=== PATIENT | male | born 1975 | race Caucasian/White ===

== ENCOUNTER 2022-10-05 08:37 | Day surgery (SDC) | payer OTHER, BC, SELFPAY ==
[2022-10-05] VITALS (9 sets, daily range): BP systolic 111–154; BP diastolic 67–93; PULSE 64–109; RESP 16–18; TEMP 36.5–36.9; O2SAT 95–99; BMI 23.3
[2022-10-05] MEDS: LACTATED RINGERS 1000 ML 1,000 ML 100 ML IV (09:00)
[2022-10-05] MEDS: SODIUM CHLORIDE 0.9 % (FLUSH) 10 ML SYRINGE IVF (09:15)
[2022-10-05] MEDS: CEFAZOLIN 2 GM INJ IVP (11:07)
--- NOTE | 2022-10-05 11:07 | PM.GSPRC ---
Operative Note Date of procedure: 10/05/22 Pre-op diagnosis: Left inguinal hernia Post-op diagnosis: Same Type of Procedure: Laparoscopic left inguinal hernia repair with mesh Procedure Description: After discussing the risks and benefits of the procedure, the patient signed informed consent.? The operative site was marked and the patient was brought to the operating room and placed on the operating table in supine position.? Care was taken to pad the patient's pressure points.?? The patient was then intubated by anesthesia.?? The operative site was then prepped and draped in the usual sterile fashion.? A time-out was then performed. A curvilinear incision was made below the umbilicus. Dissection was carried down to subcutaneous tissue until the anterior rectus fascia was encountered. This was incised off the midline on the left. The rectus muscle fibers were then retracted exposing the posterior fascia. A port with a dissecting balloon was then introduced into the pre-preperitoneal space. This was inflated under direct vision. The balloon was deflated, removed, and a 10 mm working port was placed. The space was insuflated and a 10 mm 30-degree scope was then advanced into the space. Two 5 mm ports were placed in the midline under direct vision. Dissection began on the left side. Mekhi's ligament and the pubic bone was exposed medially. A direct hernia was noted. This was reduced. Following this, dissection was carried out laterally. An indirect defect was noted. The sac was dissected free from the cord structures using a combination of sharp and blunt dissection. Once the sac was completely reduced, a piece of Bard 3DMax mesh for the appropriate side was placed into the abdomen. This was positioned with the marker pointed medially. A Tacker was used to attach the mesh medially at Mekhi's ligament and 1 tack laterally with care to avoid the epigastric vessels and stay above the inguinal ligament. Because he had a direct hernia as well, a tack was used to attach the mesh in the medially above the direct hernia. Once this was completed the sac was placed on top of the mesh and the preperitoneal space desufflated under direct vision. The ports were removed. The fascia from the infraumbilical port was closed with 0 Vicryl. The skin incisions were closed with absorbable subcuticular suture. Sterile dressings were then applied. The scrotum was examined to ensure that both testicles were down. Instrument sponge and needle counts were correct at the end of the case. ? The patient was then woken and transported to the recovery area in stable condition. ? The patient tolerated the procedure well. Indications: The patient is a 47-year-old male with a longstanding left inguinal hernia. It has become increasingly symptomatic for him and he has elected to have it repaired now since it is a good time with his work schedule. Findings: Direct and indirect left inguinal hernia Anesthesia: GETA Surgeon: Mora Fuller MD Estimated blood loss (mL): 5 Condition: stable Disposition: PACU
[2022-10-05] MEDS: BUPIVACAINE 0.25% 30 ML INJECTION (12:08)
--- NOTE | 2022-10-05 12:41 | W.ANESCHARGE ---
Anesthesia Charges Start Date/Time Anesthesia Start Date: 10/05/22 Anesthesia Start Time: 10:58 Stop Date/Time Anesthesia Stop Date: 10/05/22 Anesthesia Stop Time: 12:35 Summary Emergency: No
--- NOTE | 2022-10-05 12:57 | W.ANESCHARGE ---
Anesthesia Charges Start Date/Time Anesthesia Start Date: 10/05/22 Anesthesia Start Time: 10:58 Stop Date/Time Anesthesia Stop Date: 10/05/22 Anesthesia Stop Time: 12:35 Summary Emergency: No
== END 2022-10-05 14:08 | disposition home or self-care (01) ==
PROVIDERS: PCP Surgery; Visit Provider Surgery
PROC: (CPT 49650; principal; 2022-10-05 09:45)
DX: K40.90 Unilateral inguinal hernia, without obstruction or gangrene, not specified as recurrent (principal)
CPT/HCPCS: 49650; 00830; C1781; J0330; J0690; J1100; J2250; J2405; J2704; J2710; J3010; J3490; J7120